=== PATIENT | female | born 1955 | race Caucasian/White ===

== ENCOUNTER → 2018-01-02 07:07 | Outpatient (CLI) | payer OTHER, SELFPAY ==
--- NOTE | 2018-01-02 07:12 | BI_ITS ---
MAMMOGRAPHY - BILATERAL SCREENING REASON FOR EXAM: Female, 62 years old. Routine annual screening examination. PERTINENT HISTORY: Grandmother with breast cancer. Aunt with breast cancer. TECHNIQUE: Digital bilateral breast michael (3D mammographic acquisition) in the CC and MLO projections. 2-D mediolateral oblique (MLO) and craniocaudad (CC) views of both breasts were obtained. CAD: Full Field Digital Mammography with Computer Added Detection was performed. COMPARISON: Comparison is made with prior study dated February 26, 2017 and February 01, 2016. FINDINGS: Breast Composition: The breasts are heterogeneously dense, which may obscure small masses. There are no dominant masses or suspicious calcifications. Stable appearance of the benign appearing bilateral axillary lymph nodes. No other significant abnormalities are identified. There has been no significant change since the prior study. BI/SCREENING MAMM (CAD), BILAT IMPRESSION: Stable bilateral screening mammogram. Yearly follow-up mammogram recommended. (A) ASSESSMENT CATEGORY: BIRADS Category 2: Benign. A letter regarding these results will be sent to the patient by the facility within 30 days. Approximately 10% of breast cancers are not detected by mammography. A normal mammogram should not delay biopsy of a clinically suspicious abnormality. [id number] Electronically Signed: Ziggy Okeefe MD at 10:57 EDT Tel [phone], Service support ,
[2018-01-09 09:45] LABS: HPV APTIMA, High Risk Negative (Negative)
== END ==
PROVIDERS: Family Provider Family Medicine; PCP Family Medicine; Visit Provider Nurse Practitioner Women's Health
DX: Z12.4 Encounter for screening for malignant neoplasm of cervix (principal); Z12.31 Encounter for screening mammogram for malignant neoplasm of breast
CPT/HCPCS: 77063; 77067; 88175; G0145

== ENCOUNTER → 2019-01-07 12:45 | Outpatient (CLI) | payer OTHER, SELFPAY ==
--- NOTE | 2019-01-07 12:48 | BI_ITS ---
MAMMOGRAPHY - BILATERAL SCREENING REASON FOR EXAM: Female, 63 years old. Routine annual screening examination. PERTINENT HISTORY: Grandmother with breast cancer. Aunt with breast cancer. TECHNIQUE: Digital bilateral breast disha (3D mammographic acquisition) in the CC and MLO projections. 2-D mediolateral oblique (MLO) and craniocaudad (CC) views of both breasts were obtained. CAD: Full Field Digital Mammography with Computer Added Detection was performed. COMPARISON: Comparison is made with prior study dated January 02, 2018 and February 26, 2017. FINDINGS: Breast Composition: The breasts are heterogeneously dense, which may obscure small masses. There are no dominant masses or suspicious calcifications. Small bilateral benign appearing axillary lymph nodes. No other significant abnormalities are identified. There has been no significant change since the prior study. BI/SCREEN MAMM (CAD) W/DISHA BILAT IMPRESSION: Stable bilateral screening mammogram. Yearly follow-up mammogram recommended. (A) ASSESSMENT CATEGORY: BIRADS Category 2: Benign. A letter regarding these results will be sent to the patient by the facility within 30 days. Approximately 10% of breast cancers are not detected by mammography. A normal mammogram should not delay biopsy of a clinically suspicious abnormality. [id number] Electronically Signed: Ziggy Okeefe, at 14:02 EDT , Service support ,
== END ==
PROVIDERS: Referring Provider Nurse Practitioner Women's Health; Visit Provider Nurse Practitioner Women's Health
DX: Z12.31 Encounter for screening mammogram for malignant neoplasm of breast (principal); Z80.3 Family history of malignant neoplasm of breast
CPT/HCPCS: 77063; 77067

== ENCOUNTER → 2020-01-12 09:54 | Outpatient (CLI) | payer OTHER, SELFPAY ==
[2019-01-07 13:37] VITALS: BMI 22.5
[2020-01-12 09:34] VITALS: BMI 22.5
--- NOTE | 2020-01-12 09:59 | BI_ITS ---
MAMMOGRAPHY - BILATERAL SCREENING 3-D TOMOSYNTHESIS REASON FOR EXAM: Female, 64 years old. Routine screening PERTINENT HISTORY: FAM HX MAT GMA AGE 80S, MAT AUNT AGE 60S, 2 MAT COUSINS AGES 30S -- HRT USE FOR A COUPLE YRS. -- GAINED 10#. TECHNIQUE: 2-D mammograms and 3-D Tomosynthesis of the breast (s) were performed. CAD was performed. COMPARISON: 01/07/2019 FINDINGS: The breast composition is heterogeneously dense that can obscure small breast masses. Scattered benign calcifications are seen. No dense spiculated masses or suspicious microcalcifications are identified. No architectural distortion is identified. There is no skin thickening or retraction. There has been no significant change since the prior study. BI/SCREEN MAMM (CAD) W/DISHA BILAT IMPRESSION: No mammographic signs of malignancy. Routine yearly mammograms recommended. ASSESSMENT CATEGORY: BIRADS Category 2: Benign. A letter regarding these results will be sent to the patient by the facility within 30 days. FOLLOW UP RECOMMENDATION: Yearly follow up mammogram recommended. (A) Approximately 10% of breast cancers are not detected by mammography. A normal mammogram should not delay biopsy of a clinically suspicious abnormality. Electronically Signed: Steven Jimenes MD at 12:10 EDT , Service support ,
== END ==
PROVIDERS: PCP Family Medicine; Referring Provider Nurse Practitioner Women's Health; Visit Provider Nurse Practitioner Women's Health
DX: Z12.31 Encounter for screening mammogram for malignant neoplasm of breast (principal)
CPT/HCPCS: 77063; 77067

== ENCOUNTER → 2020-03-19 14:21 | Outpatient (CLI) | payer OTHER, SELFPAY ==
[2020-01-12 09:34] VITALS: BMI 22.5
--- NOTE | 2020-03-19 14:28 | US_ITS ---
STUDY: THYROID ULTRASOUND REASON FOR EXAM: Female, 64 years old. Nodules. TECHNIQUE: Ultrasound evaluation of the thyroid was performed with real-time and static deleon-scale imaging. COMPARISON: Thyroid ultrasound, 01/10/2016. FINDINGS: RIGHT LOBE: The right lobe of the thyroid gland measures 4.6 x 1.5 x 2.0 cm. There is a homogeneous echotexture. In the lower pole there is a predominantly solid somewhat spongiform-appearing mass which is slightly hypoechoic to normal tissue. This measures 2.2 x 1.8 x 1.5 cm. In the upper pole there is a mildly hypoechoic solid nodule measuring 1.0 x 0.8 x 0.5 cm. Other small cystic foci are also noted. Normal vascularity throughout the right thyroid LEFT LOBE: The left lobe of the thyroid gland measures 4.5 x 1.4 x 1.3 cm. There is a homogeneous echotexture. In the mid left thyroid there is a mildly hypoechoic solid but somewhat spongiform nodule or mass measuring 1.4 x 1.0 x 1.0 cm. There is also a 0.7 x 0.5 cm calcified nodule with shadowing which limits further evaluation. There is diffusely increased vascularity throughout the left thyroid. ISTHMUS: The isthmus measures 0.2 cm. The regional lymph nodes are normal. US/Thyroid IMPRESSION: Stable thyroid ultrasound when compared to the previous study. These nodules have been stable for greater than a two-year. 2. BE benign. Electronically Signed: Kodi Arguelles DO at 16:09 EDT Tel [phone], Service support ,
== END ==
PROVIDERS: PCP Internal Medicine; Referring Provider Internal Medicine; Visit Provider Internal Medicine
DX: E04.2 Nontoxic multinodular goiter (principal)
CPT/HCPCS: 76536

== ENCOUNTER → 2021-02-16 12:10 | Outpatient (CLI) | payer OTHER, SELFPAY ==
[2020-01-12 09:34] VITALS: BMI 22.5
--- NOTE | 2021-02-16 12:12 | BI_ITS ---
MAMMOGRAPHY - BILATERAL SCREENING REASON FOR EXAM: Female, 65 years old. Routine annual screening examination. PERTINENT HISTORY: Grandmother with breast cancer. Aunts with breast cancer. TECHNIQUE: Digital bilateral breast disha (3D mammographic acquisition) in the CC and MLO projections. 2-D mediolateral oblique (MLO) and craniocaudad (CC) views of both breasts were obtained. CAD: Full Field Digital Mammography with Computer Added Detection was performed. COMPARISON: Comparison is made with prior study dated 01/12/2020 and 01/07/2019. FINDINGS: Breast Composition: The breasts are heterogeneously dense, which may obscure small masses. There are no dominant masses or suspicious calcifications. Stable benign-appearing bilateral axillary lymph nodes. No other significant abnormalities are identified. There has been no significant change since the prior study. BI/SCRN MAMM (CAD)W/DISHA BILAT IMPRESSION: Stable bilateral screening mammogram. Yearly follow-up mammogram recommended. (A) ASSESSMENT CATEGORY: BIRADS Category 2: Benign. A letter regarding these results will be sent to the patient by the facility within 30 days. Approximately 10% of breast cancers are not detected by mammography. A normal mammogram should not delay biopsy of a clinically suspicious abnormality. [id number] Electronically Signed: Ziggy Okeefe MD at 13:01 EDT , Service support ,
== END ==
PROVIDERS: PCP Internal Medicine; Referring Provider Nurse Practitioner Women's Health; Visit Provider Nurse Practitioner Women's Health
DX: Z12.31 Encounter for screening mammogram for malignant neoplasm of breast (principal)
CPT/HCPCS: 77063; 77067

== ENCOUNTER → 2021-12-27 | Outpatient (CLI) | payer OTHER, SELFPAY ==
--- NOTE | 2021-12-27 07:38 | BI_ITS ---
MAMMOGRAPHY - BILATERAL SCREENING REASON FOR EXAM: Female, 66 years old. Routine annual screening examination. PERTINENT HISTORY: Grandmother with breast cancer. Aunt with breast cancer. TECHNIQUE: Digital bilateral breast disha (3D mammographic acquisition) in the CC and MLO projections. 2-D mediolateral oblique (MLO) and craniocaudad (CC) views of both breasts were obtained. CAD: Full Field Digital Mammography with Computer Added Detection was performed. COMPARISON: Comparison is made with prior study dated 02/16/2021 and 01/12/2020. FINDINGS: Breast Composition: The breasts are heterogeneously dense, which may obscure small masses. There are no dominant masses or suspicious calcifications. No other significant abnormalities are identified. There has been no significant change since the prior study. BI/SCRN MAMM (CAD)W/DISHA BILAT IMPRESSION: Stable bilateral screening mammogram. Yearly follow-up mammogram recommended. (A) ASSESSMENT CATEGORY: BIRADS Category 1: Negative. A letter regarding these results will be sent to the patient by the facility within 30 days. Approximately 10% of breast cancers are not detected by mammography. A normal mammogram should not delay biopsy of a clinically suspicious abnormality. [id number] Electronically Signed: Ziggy Okeefe MD at 8:22 EDT ,
== END | disposition home or self-care (01) ==
LOC: OPBI 07:37
PROVIDERS: PCP Internal Medicine; Visit Provider Nurse Practitioner Women's Health
DX: Z12.31 Encounter for screening mammogram for malignant neoplasm of breast (principal); Z80.3 Family history of malignant neoplasm of breast
CPT/HCPCS: 77063; 77067

== ENCOUNTER → 2022-01-03 | Outpatient (CLI) | payer OTHER, SELFPAY ==
--- NOTE | 2022-01-03 15:05 | BD_ITS ---
STUDY: DUAL ENERGY X-RAY ABSORPTIOMETRY / DXA REASON FOR EXAM: Female, 66 years old. Post menopausal TECHNIQUE: Bone Mineral Density (BMD) measurements of lumbar spine and bilateral hips were obtained. COMPARISON: None. FINDINGS: Lumbar Spine (L1-L4): g/cm2 (0.703) / T-score (-3.1) / Z-score (-1.3) Findings are suggestive of osteoporosis with a high fracture risk. Left Femur Total: g/cm2 (0.799) / T-score (-1.2) / Z-score (0.1) Left Femoral Neck: g/cm2 (0.753) / T-score (-0.9) / Z-score (0.7) Right Femur Total: g/cm2 (0.853) / T-score (-0.7) / Z-score (0.6) Right Femoral Neck: g/cm2 (0.738) / T-score (-1.0) / Z-score (0.6) BD/Dexa Bone Density Study IMPRESSION: The patient is considered osteoporotic as outlined below according to World Terry Organization (WHO) criteria with a high fracture risk. Reference Information: The T-score is the number of standard deviations above or below the standard which is normal for young adults at their peak bone mineral density. The World Health Organization (WHO) interprets the T-scores as follows: Above -1 Normal bone density Between -1 and -2.5 Osteopenia Equal to / or below -2.5 Osteoporosis As a practical clinical guideline, osteopenia may be graded as follows: Mild -1 through -1.5 Moderate -1.6 through -2.0 Severe -2.1 through -2.4 The Z-score is the number of standard deviations above or below age-matched controls. A Z-score of less than -1.5 would be considered abnormal. References: 1. NIH Osteoporosis and Related Bone Diseases www osteo.org 2. International Society for Clinical Densitometry www iscd.org 3. National Osteoporosis Foundation www nof.org Electronically Signed: Ziggy Okeefe MD at 15:32 EDT ,
== END | disposition home or self-care (01) ==
LOC: OPBD 14:57
PROVIDERS: PCP Internal Medicine; Referring Provider Nurse Practitioner Women's Health; Visit Provider Nurse Practitioner Women's Health
DX: M81.0 Age-related osteoporosis without current pathological fracture (principal); Z78.0 Asymptomatic menopausal state
CPT/HCPCS: 77080

== ENCOUNTER → 2022-09-06 | Outpatient (CLI) | payer OTHER, SELFPAY ==
--- NOTE | 2022-09-06 16:44 | RAD_ITS ---
EXAM: XR CHEST, 2 VIEWS CLINICAL INDICATION: COUGH TECHNIQUE: Frontal and lateral views of the chest. This report was created using [employer] report generation technology. COMPARISON: None. FINDINGS: LUNGS AND PLEURAL SPACES: Mild biapical scarring. No consolidation or edema. No pneumothorax. No effusion. Emphysema suggested. HEART: Unremarkable. Cardiac silhouette not enlarged. MEDIASTINUM: Central airways and mediastinal contour are unremarkable. BONES/JOINTS: S-shaped curvature of the spine. Diffuse osteopenia. SOFT TISSUES: Unremarkable. VASCULATURE: Atherosclerotic calcifications of the nonenlarged thoracic aortic arch. RAD/Chest PA and Lateral IMPRESSION: No acute disease. Electronically Signed: Aquiels Cardoza MD at 22:30 EST ,
[2022-09-06 17:52] LABS: Absolute Lymphocyte Count 3.55 X10^3/uL (0.83-4.51); Absolute Neutrophil Count 3.3 X10^3/uL (2.0-7.7); Basophil# 0.07 X10^3/uL; Basophil% 0.9 % (0-1); Eosinophil# 0.32 X10^3/uL; Hematocrit 42.3 % (37-47); Hemoglobin 13.7 g/dL (12.0-15.0); Lymphocyte # 3.55 X10^3/ul (0.83-4.51); Lymphocyte % 44.7 % (19-41); Mean Corp Hgb Conc 32.4 g/dL (32-36); Mean Corpuscular Hgb 32.2 pg (27.0-32.0); Mean Corpuscular Volume 99.5 fL (81-99); Monocyte# 0.67 X10^3/uL; Monocyte% 8.4 % (0-10); NRBC Flagged by Analyzer 0 % (0-5); Neutrophil # 3.32 X10^3/uL (2.7-7.7); Neutrophil % 41.7 % (47-70); Platelet Count 327 K/mm3 (150-450); RBC Distribution Width CV 12.7 % (11.6-14.6); RBC Distribution Width SD 46.8 fl (35.1-43.9); Red Blood Count 4.25 M/mm3 (4.2-5.4)
== END | disposition home or self-care (01) ==
LOC: MTLAB 16:41
PROVIDERS: PCP Internal Medicine; Visit Provider Internal Medicine
DX: R05.9 Cough, unspecified (principal); R50.9 Fever, unspecified
CPT/HCPCS: 36415; 71046; 85025

== ENCOUNTER → 2022-11-13 | Outpatient (CLI) | payer OTHER, SELFPAY | END | disposition home or self-care (01) | LOC: LABSPEC 08:56 | PROVIDERS: PCP Internal Medicine; Referring Provider Otolaryngology; Visit Provider Otolaryngology | DX: R05.9 Cough, unspecified (principal) | CPT/HCPCS: 87070; 87205 ==

== ENCOUNTER → 2022-12-19 | Outpatient (CLI) | payer OTHER, SELFPAY ==
--- NOTE | 2022-12-19 12:16 | BI_ITS ---
MAMMOGRAPHY - BILATERAL SCREENING REASON FOR EXAM: Female, 67 years old. Routine annual screening examination. PERTINENT HISTORY: Grandmother with breast cancer. Aunt with breast cancer. TECHNIQUE: Digital bilateral breast disha (3D mammographic acquisition) in the CC and MLO projections. 2-D mediolateral oblique (MLO) and craniocaudad (CC) views of both breasts were obtained. CAD: Full Field Digital Mammography with Computer Added Detection was performed. COMPARISON: Comparison is made with prior examination dated December 27, 2021 and February 16, 2021. FINDINGS: Breast Composition: The breasts are heterogeneously dense, which may obscure small masses. There are no dominant masses or suspicious calcifications. Stable small benign-appearing bilateral axillary lymph nodes. No other significant abnormalities are identified. There has been no significant change since the prior study. BI/SCRN MAMM (CAD)W/DISHA BILAT IMPRESSION: Stable bilateral screening mammogram. Yearly follow-up mammogram recommended. (A) ASSESSMENT CATEGORY: BIRADS Category 2: Benign. A letter regarding these results will be sent to the patient by the facility within 30 days. Approximately 10% of breast cancers are not detected by mammography. A normal mammogram should not delay biopsy of a clinically suspicious abnormality. [id number] Electronically Signed: Ziggy Okeefe MD at 14:00 EDT ,
== END | disposition home or self-care (01) ==
PROVIDERS: PCP Internal Medicine; Referring Provider Nurse Practitioner Women's Health; Visit Provider Nurse Practitioner Women's Health
DX: Z12.31 Encounter for screening mammogram for malignant neoplasm of breast (principal); Z80.3 Family history of malignant neoplasm of breast
CPT/HCPCS: 77063; 77067

== ENCOUNTER → 2023-01-03 | Outpatient (CLI) | payer OTHER, SELFPAY ==
--- NOTE | 2023-01-03 13:32 | CT_ITS ---
STUDY: CT CHEST WITH CONTRAST REASON FOR EXAM: Female, 67 years old. Chronic dry cough. RADIATION DOSAGE (If Supplied By Facility): CTDIvol = ( 11.96 ) mGy, DLP = ( 252.66 ) mGycm TECHNIQUE: Transaxial imaging was performed following intravenous administration of IV 100mL Isovue-300. Multiplanar coronal and sagittal images were reformatted. Individualized dose optimization techniques were used for this CT. COMPARISON: Comparison is made with prior chest radiograph dated September 06, 2022. FINDINGS: CHEST Minimally enlarged posterior aspect of the right lobe of the thyroid with a tiny hypodensity within it. Small benign-appearing bilateral axillary lymph nodes. The lungs are normal. There is no demonstrated pleural abnormality. Normal heart and pericardium. Normal mediastinum. Normal hilar regions. Normal unenhanced pulmonary arteries. There is atherosclerotic calcification of the aortic arch. There are degenerative changes of the thoracic spine. Small hiatal hernia. CT/Chest WITH Contrast IMPRESSION: No acute abnormality is seen. Electronically Signed: Ziggy Okeefe MD at 13:04 EDT ,
[2023-01-03 14:17] LABS: CREATININE FINGERSTICK < 0.9 mg/dL (0.55-1.02)
== END | disposition home or self-care (01) ==
PROVIDERS: PCP Internal Medicine; Referring Provider Internal Medicine; Visit Provider Internal Medicine
DX: R05.3 Chronic cough (principal)
CPT/HCPCS: 71260; Q9967

== ENCOUNTER 2023-01-23 22:20 | Emergency (ER) | payer OTHER, SELFPAY ==
[2023-01-23 22:20] VITALS: BP 165/83; PULSE 71; RESP 18; TEMP 36.1; O2SAT 97; BMI 25.4
--- NOTE | 2023-01-23 22:29 | EX.ED.VISEXT ---
HPI History of Present Illness Chief Complaint: Bite [facility] Medical History Atrophy of vagina Isiah's disease Hypertension Melanoma Thyroid disorder Vulvodynia Home Medications atenolol 25 mg tablet 25 mg PO QDAY 01/02/18 [History Last Taken Unknown] hydrochlorothiazide 25 mg tablet 25 mg PO QAM 01/02/18 [History Last Taken Unknown] amitriptyline 10 mg tablet 10 mg PO DAILY 02/16/21 [History Last Taken Unknown] estradiol 0.01% (0.1 mg/gram) vaginal cream (Estrace) See Rx Instructions vaginal .COMPLEX #42.5 grams 12/19/22 [Rx Last Taken Unknown] amoxicillin 875 mg-potassium clavulanate 125 mg tablet 1 tab PO BID 10 days #20 tabs 01/23/23 [Rx Last Taken Unknown] Allergy/AdvReac Type Severity Reaction Status Date / Time ibuprofen Allergy Mild Other Verified 01/23/23 22:20 propoxyphene [From Darvon] Allergy Mild Other Verified 01/23/23 22:20 Family History Mother Heart disease Brother Cancer Grandmother Breast cancer Aunt Breast cancer Surgical History H/O knee surgery H/O tubal ligation History of bladder surgery Hx of vaginal surgery Social History Smoking Status: Never smoker alcohol intake: current details: social/rare substance use type: does not use caffeine: Yes what type of physical activity do you participate in: walking frequency: 5-6 times per week seatbelt use: always do you feel safe at home: Yes additional social history: [employer] ([place]) Patient works at [employer] EXAM Physical Exam Const Vital Signs: 01/23/23 22:20 Temperature 97 F L Temperature Source Temporal Pulse Rate 71 Respiratory Rate 18 Blood Pressure 165/83 H Blood Pressure Mean 110 Pulse Ox 97 MDM MDM MDM Narrative Medical decision making narrative: HISTORY OF PRESENT ILLNESS: 67-year-old female here with right hand injury secondary to cat bite on Sunday morning. She states REVIEW OF SYSTEMS: Pertinent positives: Right hand pain Pertinent negatives: Fever, vomiting PHYSICAL EXAM: Nursing triage notes reviewed, Vital signs reviewed Constitutional: please see mdm Extremities: No edema Neuro: Intact 5/5 strength with ok sign (median), intact finger abduction (ulnar) intact wrist extension (radial n). Intact sensation in the radial, ulnar, and median nerve distributions. Skin: Redness noted over the dorsal surface of the right hand going up the forearm, terminates approximate mid forearm, no crepitus or bullae pain is out of proportion to exam 2 small abrasions noted to the dorsal base of the hand. MEDICAL DECISION MAKING: Chief Complaint: Cat bite Factors affecting care: Isiah's thyroiditis, hypertension Social determinants of health: Never smoker ALL IMAGES (IF OBTAINED) HAVE BEEN PERSONALLY REVIEWED AND INTERPRETED BY MYSELF. [facility] Narrative: Patient was hemodynamically stable, afebrile, nontoxic-appearing. Exam distant with infected cat bite with overlying cellulitis on the bite wound. No evidence of flexor tenosynovitis, necrotizing fasciitis. Obvious fluctuance or induration to suggest abscess. We will give prophylactic Augmentin to cover cat bites. The patient and/or family, caregivers express understanding. The patient and/or family, caregivers agrees with the plan. Total critical care time today provided was at least 0 [] minutes. This excludes separately billable procedures. Critical care time (if documented) is secondary to the patient having high probability of clinically significant/life threatening deterioration in the patient's condition which required my urgent intervention. Shared decision making: I will have a discussion with the patient and or visitors regarding risk/benefits of further testing or admission. They will be made aware of of the risk/benefits inherent in this decision they will be given the opportunity to voice understanding. Discharge Plan Triage Chief Complaint: Bite ED Provider: Sharan Ortiz Dx/Rx/DC Orders Clinical Impression: Cellulitis, Cat bite Instructions: ED Cat Bite Prescriptions: New amoxicillin-pot clavulanate 875-125 mg tablet 1 tab PO BID 10 Days Qty: 20 0RF No Action atenolol 25 mg tablet 25 mg PO QDAY hydrochlorothiazide 25 mg tablet 25 mg PO QAM amitriptyline 10 mg tablet 10 mg PO DAILY estradiol [Estrace] 0.01 % (0.1 mg/gram) cream See Rx Instructions vaginal .COMPLEX Qty: 42.5 2RF Rx Instructions: pea sized amount VAGINAL twice a week; Primary Care Provider: Ana Swift Referrals: Ana Swift, [Primary Care Provider] - Activity Restrictions/Additional Instructions: Thank you for trusting us with your care today! Please take Tylenol (2 pills, 650 mg), ibuprofen (2 pills, 400 mg) every 6 hours as needed for pain and fever control. Please take antibiotics as prescribed. Please complete entire course of antibiotics. Please return to the emergency department if your symptoms change or worsen. Specifically if redness worsens over hours. If you develop blisters. If cannot tell antibiotics by mouth. Please follow with your primary care physician for further outpatient evaluation and management. Disposition Disposition: Home, Self Care
[2023-01-23] MEDS: Amox/Clavulanate 875 MG Tablet PO (23:01)
== END 2023-01-23 23:03 | disposition home or self-care (01) ==
LOC: ED 22:46
PROVIDERS: Emergency Provider Emergency Medicine; PCP Internal Medicine; Visit Provider Emergency Medicine
DX: S60.571A Other superficial bite of hand of right hand, initial encounter (principal); W55.01XA Bitten by cat, initial encounter; L03.113 Cellulitis of right upper limb; I10 Essential (primary) hypertension; Z79.899 Other long term (current) drug therapy
CPT/HCPCS: 99283

== ENCOUNTER → 2023-02-27 | Outpatient (CLI) | payer OTHER, SELFPAY ==
--- NOTE | 2023-02-28 11:15 | PFT ---
INTRODUCTION: The patient is a 67-year-old female who presents for pulmonary function studies secondary to a diagnosis of chronic cough. Respiratory therapy reported good patient effort. Bronchodilators were used during testing. INTERPRETATION: Forced expiration spirometry demonstrates no evidence of a large airways obstructive ventilatory defect. There was no significant response to aerosolized bronchodilators. Spirograms are of good quality and plateau normally. Body plethysmography was performed and revealed lung volumes to be within normal limits. Diffusing capacity by single breath CO was also within normal limits. IMPRESSION: Grossly normal pulmonary function studies.
== END | disposition home or self-care (01) ==
LOC: PSN 08:36
PROVIDERS: PCP Internal Medicine; Referring Provider Internal Medicine Critical Care Medicine; Visit Provider Internal Medicine Critical Care Medicine
DX: R05.3 Chronic cough (principal)
CPT/HCPCS: 94060; 94726; 94729

== ENCOUNTER → 2023-03-13 | Outpatient (CLI) | payer OTHER, SELFPAY ==
[2023-03-13] MEDS: Methacholine Chloride 18 ml neb kit INHALATION (13:06)
--- NOTE | 2023-03-14 12:44 | BRONCHALL ---
Bronchoprovocation Challenge Bronchoprovocation Challenge Bronchoprovocation Challenge: INTRODUCTION: The patient is a 67-year-old female who presented for a methacholine inhalation challenge secondary to a diagnosis of chronic cough. Respiratory therapy reported good patient effort. INTERPRETATION: Initial spirometry did not show any large airways obstructive ventilatory defect with preserved airflows throughout. The patient was then given progressively increasing doses of methacholine in a standardized fashion. At no point during testing did the patient's FEV1 level drop to the threshold to be considered a positive test. IMPRESSION: Negative methacholine inhalation challenge.
== END | disposition home or self-care (01) ==
LOC: PSN 12:46
PROVIDERS: PCP Internal Medicine; Referring Provider Nurse Practitioner Acute Care; Visit Provider Nurse Practitioner Acute Care
DX: R05.3 Chronic cough (principal)
CPT/HCPCS: 94070; 95070

== ENCOUNTER → 2024-05-07 | Outpatient (CLI) | payer MEDICARE, SELFPAY ==
--- NOTE | 2024-05-07 10:16 | BI_ITS ---
MAMMOGRAPHY - BILATERAL SCREENING 3-D TOMOSYNTHESIS REASON FOR EXAM: Female, 68 years old. breast cancer screening PERTINENT HISTORY: No significant family history. TECHNIQUE: 2-D mammograms and 3-D Tomosynthesis of the breast (s) were performed. CAD was performed. COMPARISON: 12/19/2022 FINDINGS: The breast composition is Extermely dense tissue. Scattered benign calcifications are seen. No dense spiculated masses or suspicious microcalcifications are identified. No architectural distortion is identified. There is no skin thickening or retraction. There has been no significant change since the prior study. BI/SCRN MAMM (CAD)W/DISHA BILAT IMPRESSION: No mammographic signs of malignancy. Routine yearly mammograms recommended. ASSESSMENT CATEGORY: BIRADS Category 1: Negative. A letter regarding these results will be sent to the patient by the facility within 30 days. FOLLOW UP RECOMMENDATION: Yearly follow up mammogram recommended. (A) Approximately 10% of breast cancers are not detected by mammography. A normal mammogram should not delay biopsy of a clinically suspicious abnormality. Electronically Signed: Christiano Moore MD at 11:19 EDT ,
== END | disposition home or self-care (01) ==
LOC: OPBI 10:16
PROVIDERS: PCP Internal Medicine; Referring Provider Nurse Practitioner Women's Health; Visit Provider Nurse Practitioner Women's Health
DX: Z12.31 Encounter for screening mammogram for malignant neoplasm of breast (principal)
CPT/HCPCS: 77063; 77067

== ENCOUNTER 2024-10-28 11:56 | Day surgery (SDC) | payer MEDICARE, SELFPAY ==
--- NOTE | 2024-10-23 20:17 | PAT.ANESEVAL ---
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 When Was Last Pacemaker Check QUESTION #4 FULL TEXT: You/Your Family Experience fever (hyperthermia) with Anesthesia Last Oral Intake Last Oral intake: Last Oral Intake NPO since Meds taken in AM with sips of water? 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 Female Yes 10/23/24 10:21 HX of Motion Sickness No 10/23/24 10:21 HX of N/V After Surgery No 10/23/24 10:21 Non-Smoker Yes 10/23/24 10:21 Duration of Surgery greater No 10/23/24 10:21 than 60 minutes Number of Risk Factors 2 10/23/24 10:21 PONV Score Moderate Risk 10/23/24 10:21 Height & Weight Height & Weight: Anesthesia: Height & Weight Height 5 ft 4 in 08/26/24 13:14 Respiratory Assessment Respiratory Assessment - field artillery senior sergeant: Respiratory Tract Infection Hx - 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 Has anyone observed you stop No 10/23/24 10:21 breathing during sleep? STOP Results Negative 10/23/24 10:21 QUESTION #5 FULL TEXT : Do you snore loudly (louder than talking or can be heard through closed doors)? 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 Specify any problems Hx of Preganancy in last 3 No 10/23/24 10:21 Months Nurse Filling Out Transfusion VCHRISTIN 10/23/24 10:21 & Questions: Date: 10/23/24 10/23/24 10:21 Time: 10:23 10/23/24 10:21 Patient unable to answer at this time (ie. confused, unrespo /Reproduction History /Reproductive History - field artillery senior sergeant: /Reproductive Hx- field artillery senior sergeant Hx Now No 10/23/24 10:21 Gestational Age (in weeks): EDC: Hx Hx Para Hx Section SAB No 10/23/24 10:21 [facility] Medical History (Updated 10/23/24 @ 10:21 by Dominique Alfaro) Wears partial dentures Wears contact lenses Cancer Post-menopausal Anxiety Arthritis Gastric reflux Non-smoker Leg cramps History of irregular heartbeat History of stress test History of echocardiogram Cardiology follow-up encounter Myocardial infarction Mitral valve prolapse Osteoporosis 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 Melanoma Thyroid disorder Hypertension Home Medications ?Medication ?Instructions ?Recorded ?Last Taken ?Type atenolol 25 mg tablet 25 mg PO QDAY 01/02/18 Unknown History hydrochlorothiazide 12.5 mg capsule 12.5 mg PO DAILY 06/04/23 Unknown History ascorbic acid (vitamin C) 500 mg 500 mg PO QDAY 08/26/24 Unknown History tablet calcium citrate 200 mg PO QDAY 08/26/24 Unknown History cholecalciferol (vit D3) 1,000 1 tab PO QDAY 08/26/24 Unknown History unit-vitamin K2 (MK4) 100 mcg tablet docusate potassium 100 mg capsule 100 mg PO DAILY 02/04/25 Unknown History famotidine 20 mg tablet 20 mg PO QDAY #90 tabs 08/26/24 Unknown Rx niya labs berbelite 2 tab PO DAILY 08/26/24 Unknown History nortriptyline 10 mg capsule 20 mg PO QHS 08/26/24 Unknown History thyroid (pork) 15 mg tablet 7.5 mg PO QDAY 08/26/24 Unknown History ([place] Thyroid) tyrosine 400 mg-acetylcysteine 133 2 cap PO DAILY 08/26/24 Unknown History mg capsule (AdrenaMax) zinc acetate 50 mg (zinc) capsule 50 mg PO QDAY 08/26/24 Unknown History magnesium glycinate 110 mg PO DAILY 10/23/24 Unknown History Allergy/AdvReac Type Severity Reaction Status Date / Time rofecoxib (From Vioxx) Allergy Intermediate urticaria Verified 10/23/24 10:07 ibuprofen Allergy Mild Other Verified 10/23/24 10:07 propoxyphene (From Darvon) Allergy Mild Other Verified 10/23/24 10:07 grass pollen Allergy Other Verified 10/23/24 10:07 house dust Allergy Other Verified 10/23/24 10:07 mold Allergy Other Verified 10/23/24 10:07 ragweed pollen Allergy Other Verified 10/23/24 10:07 tree and shrub pollen Allergy NEEDS Verified 10/23/24 10:07 FOLLOW-UP Family History Mother Heart disease Brother Cancer Heart disease Alcohol abuse Hypertension Grandmother Breast cancer Aunt Breast cancer Uncle Heart disease Father Parkinsons Hypertension Kidney disease Sister Hypertension CVA (cerebral vascular accident) Surgical History (Updated 10/23/24 @ 10:21 by Dominique Alfaro) History of cardiac catheterization Hx of dilation and curettage Hx of LASIK Hx of vaginal surgery H/O knee surgery History of bladder surgery H/O tubal ligation Social History household members: spouse pets and animals: Yes history of recent travel: No Smoking Status: Never smoker alcohol intake: current details: social/rare substance use type: does not use caffeine: Yes what type of physical activity do you participate in: walking frequency: 5-6 times per week seatbelt use: always do you feel safe at home: Yes additional social history: Rd[employer] ([place]) Patient works at [employer] Audit: Pertinent Findings Pertinent Findings EKG Perinent findings: July 26, 2020. 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 LVH. Old anterior infarct. Diffuse ST depression. Heart catheterization pertinent findings: September 05, 2000. Ejection fraction 60%. Normal coronaries. Consult pertinent findings: June 06, 2024. Dr. Holloway. 1. Hypertension 2. Subendocardial infarct?old-no current symptoms of discomfort or palpitations or shortness of breath or edema. Recommendation Anesthesia Recommendation Anesthesia recommendation: OPTIMIZED for anesthesia
[2024-10-28] VITALS (7 sets, daily range): BP systolic 96–139; BP diastolic 64–84; PULSE 92–104; RESP 16–18; TEMP 36.1–36.7; O2SAT 96–100; BMI 22.3
--- NOTE | 2024-10-28 13:00 | COLBX_PTH ---
PATIENT: MATIAS BLACKBURN LOC: EN U#:[id number] AGE/SX: 69/F ROOM: RE10/28/[address]: Dr. Aamir Heredia DO : 1955 BED: DIS: 10/28/2024 SPEC #: [id number] RECD: 10/28/24 15:15 STATUS: JUNE ALIYAH #: [id number] SANDRA: 10/28/24 13:[address]: Aamir Heredia DEPT: SURGICAL PATHOLOGY RECD BY: Arturo Lau ENTERED: 10/29/24 08:47 SP TYPE: COLON BX OTHR DR: Dr. Ana Swift DO Tissues: A - Esophagus, NOS Procedures: Surgery Specimen Level IV HEADER OPERATION: Colonoscopy, EGD with biopsy and dilation PRE-OP DIAGNOSIS: Positive colorectal cancer screening using Cologuard, GERD, chronic cough, dysphagia TISSUE SUBMITTED: A- Distal esophagus biopsy MICROSCOPIC DIAGNOSIS A. Distal esophagus, biopsy: * Squamous mucosa with no specific pathologic change. * Columnar mucosa negative for goblet cell metaplasia. MICROSCOPIC DESCRIPTION Slides are reviewed. GROSS DESCRIPTION A. Received in formalin in a container labeled with the patient's name, date of , and distal esophagus biopsy are 2 velazquez-pink fragments of mucosal tissue, each measuring 0.5 x 0.4 x 0.2 cm. Submitted in toto in A1. [facility] 10-29-2024 CPT:03622
--- NOTE | 2024-10-28 13:00 | PCM.PRE.AN2 ---
ASA Classification* ASA Classification ASA Classification: 3 Assessment & Plan Anesthesia* Anesthesia Assessment Anesthesia Assessment: Discussed sedation and/or anesthesia options, risks, benefits, and alternatives with patient/parents/legal guardian/POA. Questions invited. The patient/parents/legal guardian/POA seems to understand and agrees to proceed with anesthesia plan. Reviewed the physical assessment, medical history, allergy history and patient home medications list prior to surgery/procedure/anesthetic and documented any changes. Performed airway and anesthesia risk assessments. Anesthesia Type Anesthesia Type: MAC History Source History Obtained from:: Patient and Chart Anesthesia Focused Assessment* Temperature: 97.8 F Pulse Rate: 96 Blood Pressure: 139/84 Respiratory Rate: 18 Pulse Ox: 100 Oxygen Delivery Method: Room Air Airway Assessment Mouth opens: >3 cm Mallampati Score: IV Teeth Condition: Partial (Patient has lower partial. It is out. 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 When Was Last Pacemaker Check QUESTION #4 FULL TEXT: You/Your Family Experience fever (hyperthermia) with Anesthesia Last Oral Intake Last Oral intake: Last Oral Intake NPO since 09:00 10/28/24 12:14 Meds taken in AM with sips of Yes 10/28/24 12:14 water? 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 Female Yes 10/23/24 10:21 HX of Motion Sickness No 10/23/24 10:21 HX of N/V After Surgery No 10/23/24 10:21 Non-Smoker Yes 10/23/24 10:21 Duration of Surgery greater No 10/23/24 10:21 than 60 minutes Number of Risk Factors 2 10/23/24 10:21 PONV Score Moderate Risk 10/23/24 10:21 Height & Weight Height & Weight: Anesthesia: Height & Weight Height 5 ft 4 in 10/28/24 12:14 Weight: 59 kg 10/28/24 12:14 Body Mass Index (BMI) 22.3 10/28/24 12:14 Respiratory Assessment Respiratory Assessment - jewelry polisher: Respiratory Tract Infection Hx - jewelry polisher Hx Respiratory Tract Infection No 10/23/24 10:21 STOP Sleep Apnea STOP Sleep Apnea - jewelry polisher: STOP Sleep Apnea - jewelry polisher Hx Hypertension Yes: CONTROLLED ON MED 10/23/24 10:21 Hx Sleep Apnea No 10/23/24 10:21 CPAP BIPAP Do you snore loudly (louder No 10/23/24 10:21 than talking or can be heard Do you often feel tired/ No 10/23/24 10:21 fatigued/ sleepy during daytime? Has anyone observed you stop No 10/23/24 10:21 breathing during sleep? STOP Results Negative 10/23/24 10:21 QUESTION #5 FULL TEXT : Do you snore loudly (louder than talking or can be heard through closed doors)? 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 Specify any problems Hx of Preganancy in last 3 No 10/23/24 10:21 Months Nurse Filling Out Transfusion VCHRISTIN 10/23/24 10:21 & Questions: Date: 10/23/24 10/23/24 10:21 Time: 10:23 10/23/24 10:21 Patient unable to answer at this time (ie. 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 Melanoma Thyroid disorder Hypertension Home Medications ?Medication ?Instructions ?Recorded ?Last Taken ?Type atenolol 25 mg tablet 25 mg PO QDAY 01/02/18 Unknown History hydrochlorothiazide 12.5 mg capsule 12.5 mg PO DAILY 06/04/23 Unknown History ascorbic acid (vitamin C) 500 mg 500 mg PO QDAY 08/26/24 Unknown History tablet calcium citrate 200 mg PO QDAY 08/26/24 Unknown History cholecalciferol (vit D3) 1,000 1 tab PO QDAY 08/26/24 Unknown History unit-vitamin K2 (MK4) 100 mcg tablet docusate potassium 100 mg capsule 100 mg PO DAILY 08/26/24 Unknown History famotidine 20 mg tablet 20 mg PO QDAY #90 tabs 08/26/24 Unknown Rx niya labs berbelite 2 tab PO DAILY 08/26/24 Unknown History nortriptyline 10 mg capsule 20 mg PO QHS 08/26/24 Unknown History thyroid (pork) 15 mg tablet 7.5 mg PO QDAY 08/26/24 10/28/24 History ([place] Thyroid) tyrosine 400 mg-acetylcysteine 133 2 cap PO DAILY 08/26/24 Unknown History mg capsule (AdrenaMax) zinc acetate 50 mg (zinc) capsule 50 mg PO QDAY 08/26/24 Unknown History magnesium glycinate 110 mg PO DAILY 10/23/24 Unknown History Allergy/AdvReac Type Severity Reaction Status Date / Time rofecoxib (From Vioxx) Allergy Intermediate urticaria Verified 10/28/24 12:12 ibuprofen Allergy Mild Other Verified 10/28/24 12:12 propoxyphene (From Darvon) Allergy Mild Other Verified 10/28/24 12:12 grass pollen Allergy Other Verified 10/28/24 12:12 house dust Allergy Other Verified 10/28/24 12:12 mold Allergy Other Verified 10/28/24 12:12 ragweed pollen Allergy Other Verified 10/28/24 12:12 tree and shrub pollen Allergy NEEDS Verified 10/28/24 12:12 FOLLOW-UP Family History Mother Heart disease Brother Cancer Heart disease Alcohol abuse Hypertension Grandmother Breast cancer Aunt Breast cancer Uncle Heart disease Father Parkinsons Hypertension Kidney disease Sister Hypertension CVA (cerebral vascular accident) Surgical History History of cardiac catheterization Hx of dilation and curettage Hx of LASIK Hx of vaginal surgery H/O knee surgery History of bladder surgery H/O tubal ligation Social History household members: spouse pets and animals: Yes history of recent travel: No Smoking Status: Never smoker alcohol intake: current details: social/rare substance use type: does not use caffeine: Yes what type of physical activity do you participate in: walking frequency: 5-6 times per week seatbelt use: always do you feel safe at home: Yes additional social history: [employer] ([place]) Patient works at [employer] Review of Systems (Anesthesia) ROS Narrative System reviewed and no additional complaints, except as documented.
--- NOTE | 2024-10-28 13:07 | PCM.HP.STD ---
HPI - General General Date of Admission: 10/28/24 Date of Service: 10/28/24 Chief Complaint: dysphagia and + cologuard HPI Narrative MATIAS BLACKBURN, is a 69 F who presents for a positive cologuard and dysphagia - per patient Colon & EGD 2014 were unremarkable - BerbElite - berberine, a beneficial plant-based molecule, and our proprietary Broccoli Seed Complex. - she beleieves this has caused a false positive cologuard - denies any change in bowel habits - denies any BRBPR - she reports a weight loss of 10lbs in the past year with fasting and taking berberine - GERD symptoms - burning in the chest - cough can be so bad she almost vomits - reports negative CXR and PFT - Omeprazole and allergy medication resolved symptoms - none for the past 18 months - states she read you should not be on these long - she reports Vitamin C supplement really increases her GERD symptoms - she has been taking Famotidine for management of symptoms typically 4d a week - feels dysphagia in the upper esophagus - has to slow down with eating - denies any family h/o esophageal cancer - denies any N/V - denies any NSAIDS - Caffeine - couple cups a day - non-smoker - EtOH - rare PFSH Medical History Wears partial dentures Wears contact lenses Cancer Post-menopausal Anxiety Arthritis Gastric reflux Non-smoker Leg cramps History of irregular heartbeat History of stress test History of echocardiogram Cardiology follow-up encounter Myocardial infarction Mitral valve prolapse Osteoporosis 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 Melanoma Thyroid disorder Hypertension Home Medications ?Medication ?Instructions ?Recorded ?Last Taken ?Type atenolol 25 mg tablet 25 mg PO QDAY 01/02/18 Unknown History hydrochlorothiazide 12.5 mg capsule 12.5 mg PO DAILY 06/04/23 Unknown History ascorbic acid (vitamin C) 500 mg 500 mg PO QDAY 08/26/24 Unknown History tablet calcium citrate 200 mg PO QDAY 08/26/24 Unknown History cholecalciferol (vit D3) 1,000 1 tab PO QDAY 08/26/24 Unknown History unit-vitamin K2 (MK4) 100 mcg tablet docusate potassium 100 mg capsule 100 mg PO DAILY 08/26/24 Unknown History famotidine 20 mg tablet 20 mg PO QDAY #90 tabs 08/26/24 Unknown Rx niya labs berbelite 2 tab PO DAILY 08/26/24 Unknown History nortriptyline 10 mg capsule 20 mg PO QHS 08/26/24 Unknown History thyroid (pork) 15 mg tablet 7.5 mg PO QDAY 08/26/24 10/28/24 History ([place] Thyroid) tyrosine 400 mg-acetylcysteine 133 2 cap PO DAILY 08/26/24 Unknown History mg capsule (AdrenaMax) zinc acetate 50 mg (zinc) capsule 50 mg PO QDAY 08/26/24 Unknown History magnesium glycinate 110 mg PO DAILY 10/23/24 Unknown History Allergy/AdvReac Type Severity Reaction Status Date / Time rofecoxib (From Vioxx) Allergy Intermediate urticaria Verified 10/28/24 12:12 ibuprofen Allergy Mild Other Verified 10/28/24 12:12 propoxyphene (From Darvon) Allergy Mild Other Verified 10/28/24 12:12 grass pollen Allergy Other Verified 10/28/24 12:12 house dust Allergy Other Verified 10/28/24 12:12 mold Allergy Other Verified 10/28/24 12:12 ragweed pollen Allergy Other Verified 10/28/24 12:12 tree and shrub pollen Allergy NEEDS Verified 10/28/24 12:12 FOLLOW-UP Family History Mother Heart disease Brother Cancer Heart disease Alcohol abuse Hypertension Grandmother Breast cancer Aunt Breast cancer Uncle Heart disease Father Parkinsons Hypertension Kidney disease Sister Hypertension CVA (cerebral vascular accident) Surgical History History of cardiac catheterization Hx of dilation and curettage Hx of LASIK Hx of vaginal surgery H/O knee surgery History of bladder surgery H/O tubal ligation Social History household members: spouse pets and animals: Yes history of recent travel: No Smoking Status: Never smoker alcohol intake: current details: social/rare substance use type: does not use caffeine: Yes what type of physical activity do you participate in: walking frequency: 5-6 times per week seatbelt use: always do you feel safe at home: Yes additional social history: Rd[employer] ([place]) Patient works at [employer] Constitutional Constitutional: Denies fatigue, fever(s), poor appetite, weight gain or weight loss Gastrointestinal Gastrointestinal: Denies belching, bloating, change in bowel habits, change in stool character, chewing difficulty, coffee ground emesis, constipation, cramping, diarrhea, dyspepsia, dysphagia, early satiety, excessive flatus, fecal incontinence, heartburn, hematemesis, hematochezia, hemorrhoids, loose stools, melena, nausea, odynophagia, rectal bleeding, tenesmus, vomiting or weight changes Vital Signs Vital Signs Vital Signs: 10/28/24 12:14 10/28/24 12:14 10/28/24 13:06 Temperature 97.8 F 97.8 F Temperature Source Temporal Pulse Rate 96 96 Respiratory Rate 18 18 Respiratory Pattern Normal Blood Pressure 139/84 H 139/84 H Blood Pressure Mean 102 Blood Pressure Source Monitor Blood Pressure Position Sitting Blood Pressure Location Left Arm Pulse Ox 100 100 Oxygen Delivery Method Room Air Room Air Weight Weight: 130 lb 1.164 oz Body Mass Index (BMI) 22.3 Physical Exam Const alert, oriented x3, no apparent distress and healthy appearing General Appearance: cooperative GI normal to inspection, nondistended, normoactive bowel sounds, soft to palpation, non-tender and non-distended Percussion: normal to percussion Rectal Exam: deferred Assessment & Plan Assessment/Plan (1) Positive colorectal cancer screening using Cologuard test: (2) GERD (gastroesophageal reflux disease): (3) Chronic cough: (4) Dysphagia: PLAN: 69y/o female presents for consultation with a positive Cologuard. Cologuard was completed 08/06/2024. She denies any change in bowel habits, bleeding or family history of colon cancer. She complains of GERD and takes Famotidine 3-4 days a week for symptoms. She also experiences intermittent upper esophageal dysphagia. She reports resolution of symptoms in the past with daily PPI; however, she discontinued due to concerns for theoretical side effects. I have recommended she start Famotidine 20mg daily and schedule colonoscopy and EGD. She will follow-up in the office post procedure.
--- NOTE | 2024-10-28 14:11 | OP.CCLET_ITS ---
10/28/2024 Ana Swift [address] [place] [address] Re : Upper GI endoscopy procedure for Kirsten Craig Dear Dr. Swift This procedure was performed on Monday, October 28, 2024. My impressions and recommendations are as follows: Impressions : - Z-line irregular, 39 cm from the incisors. Biopsied. - Benign-appearing esophageal stenosis. Dilated. - Medium-sized hiatal hernia. - No gross lesions in the third portion of the duodenum. Recommendations : - Discharge patient to home. - Resume previous diet. - Continue present medications. - Await pathology results. My findings are described in the full procedure note, which is enclosed. If I can be of further assistance, please feel free to contact me at . Sincerely, Aamir Heredia, 10/28/2024 2:11:03 PM This report has been signed electronically.
--- NOTE | 2024-10-28 14:11 | OP.EGD_ITS ---
Patient Name: Kirsten Craig Procedure Date: 10/28/2024 1:37 PM Date of : 1955 Age: 69 Procedure: Upper GI endoscopy Indications: Epigastric abdominal pain, Dysphagia Providers: Aamir Heredia DO Referring MD: Ana Swift Medicines: Monitored Anesthesia Care Patient Profile: This is a 69 year old female. Refer to note in patient chart for documentation of history and physical. Patient has symptoms of chronic epigastric abdominal pain, chronic dysphagia and chronic dyspepsia. Complications: No immediate complications. Procedure: Pre-Anesthesia Assessment: - Prior to the procedure, a History and Physical was performed, and patient medications and allergies were reviewed. The patient is competent. The risks and benefits of the procedure and the sedation options and risks were discussed with the patient. All questions were answered and informed consent was obtained. Patient identification and proposed procedure were verified by the physician in the pre-procedure area. Mental Status Examination: alert and oriented. Airway Examination: normal oropharyngeal airway and neck mobility. Respiratory Examination: clear to auscultation. CV Examination: normal. Prophylactic Antibiotics: The patient does not require prophylactic antibiotics. Prior Anticoagulants: The patient has taken no anticoagulant or antiplatelet agents. ASA Grade Assessment: II - A patient with mild systemic disease. After reviewing the risks and benefits, the patient was deemed in satisfactory condition to undergo the procedure. The anesthesia plan was to use monitored anesthesia care (MAC). Immediately prior to administration of medications, the patient was re-assessed for adequacy to receive sedatives. The heart rate, respiratory rate, oxygen saturations, blood pressure, adequacy of pulmonary ventilation, and response to care were monitored throughout the procedure. The physical status of the patient was re-assessed after the procedure. After obtaining informed consent, the endoscope was passed under direct vision. Throughout the procedure, the patient's blood pressure, pulse, and oxygen saturations were monitored continuously. The colonoscope was introduced through the mouth, and advanced to the third part of the duodenum. Small bowel enteroscopy was deemed necessary. The upper GI endoscopy was accomplished without difficulty. The patient tolerated the procedure well. Scope In: 1:39:01 PM Scope Out: 1:43:31 PM Total Procedure Duration Time 0 hours 4 minutes 30 seconds Findings: The Z-line was irregular and was found 39 cm from the incisors. Biopsies were taken with a cold forceps for histology. Verification of patient identification for the specimen was done. Estimated blood loss was minimal. One benign-appearing, intrinsic moderate stenosis was found 20 to 24 cm from the incisors. This stenosis measured 6 mm (inner diameter) x 6 cm (in length). The stenosis was traversed. A guidewire was placed and the scope was withdrawn. Dilation was performed with a Savary dilator with no resistance at 45 Fr. The dilation site was examined and showed moderate improvement in luminal narrowing. Estimated blood loss was minimal. A medium-sized hiatal hernia was present. No other significant abnormalities were identified in a careful examination of the stomach. No gross lesions were noted in the third portion of the duodenum. Impression: - Z-line irregular, 39 cm from the incisors. Biopsied. - Benign-appearing esophageal stenosis. Dilated. - Medium-sized hiatal hernia. - No gross lesions in the third portion of the duodenum. Recommendation: - Discharge patient to home. - Resume previous diet. - Continue present medications. - Await pathology results. Procedure Code(s): --- Professional --- 54201, Esophagogastroduodenoscopy, flexible, transoral; with insertion of guide wire followed by passage of dilator(s) through esophagus over guide wire 95152, 59,51, Small intestinal endoscopy, enteroscopy beyond second portion of duodenum, not including ileum; with biopsy, single or multiple CPT copyright 2021 [employer]. All rights reserved. The codes documented in this report are preliminary and upon apparel sales associate review may be revised to meet current compliance requirements. Aamir Heredia DO 10/28/2024 2:11:03 PM This report has been signed electronically. Number of Addenda: 0 Note Initiated On: 10/28/2024 1:37 PM
--- NOTE | 2024-10-28 14:11 | PCM.POST.ANE ---
Anesthesia: Postop Eval I Current Vital Signs Temperature: 97 F Pulse Rate: 97 Blood Pressure: 130/65 Respiratory Rate: 16 Pulse Ox: 97 Oxygen Delivery Method: Room Air Assessment Airway patent: Yes Spontaneous unlabored respirations: Yes Mental status: Awake and Calm nausea: No Vomiting: No Anesthesia Complication: No Fluid Hydration Crystalloid volume administer (ml): 60 Total IV fluid infused: 60 Progress Note Anesthesia document: Postop Eval 1 completed: Yes
--- NOTE | 2024-10-28 14:13 | OP.COLON_ITS ---
Patient Name: Kirsten Craig Procedure Date: 10/28/2024 1:43 PM Date of : 1955 Age: 69 Procedure: Colonoscopy Indications: Screening for colorectal malignant neoplasm Providers: Aamir Heredia DO Referring MD: Ana Swift Medicines: Monitored Anesthesia Care Patient Profile: This is a 69 year old female. Refer to note in patient chart for documentation of history and physical. Patient has symptoms of chronic epigastric abdominal pain, chronic dysphagia and chronic dyspepsia. Last Colonoscopy: more than 10 years ago. Complications: No immediate complications. Procedure: Pre-Anesthesia Assessment: - Prior to the procedure, a History and Physical was performed, and patient medications and allergies were reviewed. The patient is competent. The risks and benefits of the procedure and the sedation options and risks were discussed with the patient. All questions were answered and informed consent was obtained. Patient identification and proposed procedure were verified by the physician in the pre-procedure area. Mental Status Examination: alert and oriented. Airway Examination: normal oropharyngeal airway and neck mobility. Respiratory Examination: clear to auscultation. CV Examination: normal. Prophylactic Antibiotics: The patient does not require prophylactic antibiotics. Prior Anticoagulants: The patient has taken no anticoagulant or antiplatelet agents. ASA Grade Assessment: II - A patient with mild systemic disease. After reviewing the risks and benefits, the patient was deemed in satisfactory condition to undergo the procedure. The anesthesia plan was to use monitored anesthesia care (MAC). Immediately prior to administration of medications, the patient was re-assessed for adequacy to receive sedatives. The heart rate, respiratory rate, oxygen saturations, blood pressure, adequacy of pulmonary ventilation, and response to care were monitored throughout the procedure. The physical status of the patient was re-assessed after the procedure. After I obtained informed consent, the scope was passed under direct vision. Throughout the procedure, the patient's blood pressure, pulse, and oxygen saturations were monitored continuously. The colonoscope was introduced through the anus and advanced to the terminal ileum. The colonoscopy was performed without difficulty. The patient tolerated the procedure well. The quality of the bowel preparation was adequate. The terminal ileum, ileocecal valve, appendiceal orifice, and rectum were photographed. Scope In: 1:45:05 PM Scope Withdrawal Time 0 hours 8 minutes 49 seconds Scope Out: 2:00:16 PM Total Procedure Duration Time 0 hours 15 minutes 11 seconds Findings: The perianal and digital rectal examinations were normal. A few small and large-mouthed diverticula were found in the recto-sigmoid colon, sigmoid colon and descending colon. The exam was otherwise without abnormality on direct and retroflexion views. Impression: - Diverticulosis in the recto-sigmoid colon, in the sigmoid colon and in the descending colon. - The examination was otherwise normal on direct and retroflexion views. - No specimens collected. Recommendation: - Discharge patient to home. - Resume previous diet. - Continue present medications. - Repeat colonoscopy in 10 years for screening purposes. Procedure Code(s): --- Professional --- G0121, Colorectal cancer screening; colonoscopy on individual not meeting criteria for high risk CPT copyright 2021 [employer]. All rights reserved. The codes documented in this report are preliminary and upon information coder review may be revised to meet current compliance requirements. Aamir Heredia DO 10/28/2024 2:13:07 PM This report has been signed electronically. Number of Addenda: 0 Note Initiated On: 10/28/2024 1:43 PM
--- NOTE | 2024-10-28 14:13 | OP.CCLET_ITS ---
10/28/2024 [facility] [address] [place] [address] Re : Colonoscopy procedure for Kirsten Craig Dear Dr. Swift This procedure was performed on Monday, October 28, 2024. My impressions and recommendations are as follows: Impressions : - Diverticulosis in the recto-sigmoid colon, in the sigmoid colon and in the descending colon. - The examination was otherwise normal on direct and retroflexion views. - No specimens collected. Recommendations : - Discharge patient to home. - Resume previous diet. - Continue present medications. - Repeat colonoscopy in 10 years for screening purposes. My findings are described in the full procedure note, which is enclosed. If I can be of further assistance, please feel free to contact me at . Sincerely, Aamir Heredia, 10/28/2024 2:13:07 PM This report has been signed electronically.
--- NOTE | 2024-10-28 20:20 | PCM.POSTANE2 ---
Anesthesia Postop Eval I Sum Postop Eval Completion status Anesthesia document: Postop Eval 1 completed: Yes Anesthesia Postop Eval I Summary Anesthesia Postop Eval I Summary: Anesthesia Postop Eval I: Assessment Summary Airway patent Yes 10/28/24 14:11 [email or web address] Spontaneous unlabored Yes 10/28/24 14:11 [email or web address] respirations Mental status Awake,Calm 10/28/24 14:11 [email or web address] nausea No 10/28/24 14:11 [email or web address] Vomiting No 10/28/24 14:11 [email or web address] Anesthesia Postop Eval I: Fluid Summary Crystalloid volume administer 60 10/28/24 14:11 [email or web address] (ml) Colloids volume administered ( ml) Blood Product volume administered (ml) Total IV fluid infused 60 10/28/24 14:11 [email or web address] Anesthesia Postop Eval I: Summary Notes Anesthesia Complication No 10/28/24 14:11 [email or web address] Anesthesia Complication Comment: Post-operative progress note Anesthesia: Postop Eval II Evaluation Mental status: Awake and Calm Pain Level: 0 nausea: No Vomiting: No Complications Anesthesia Complication: No
== END 2024-10-28 14:58 | disposition home or self-care (01) ==
LOC: EN 11:59 → AC 12:00
PROVIDERS: PCP Internal Medicine; Referring Provider Internal Medicine; Visit Provider Internal Medicine Gastroenterology
PROC: 0DJD8ZZ Inspection of Lower Intestinal Tract, Via Natural or Artificial Opening Endoscopic (ICD-10-PCS; CPT 45378; principal; 2024-10-28 12:55)
DX: Z12.11 Encounter for screening for malignant neoplasm of colon (principal); K57.30 Diverticulosis of large intestine without perforation or abscess without bleeding; K22.2 Esophageal obstruction; K44.9 Diaphragmatic hernia without obstruction or gangrene; K21.9 Gastro-esophageal reflux disease without esophagitis; R19.5 Other fecal abnormalities; R05.3 Chronic cough; I10 Essential (primary) hypertension; Z79.899 Other long term (current) drug therapy
CPT/HCPCS: G0121; 44361; 88305; A4216; C1769; J2405